=== PATIENT | male | born 1995 | race African-American/Black ===

== ENCOUNTER 2018-03-21 13:53 | Emergency (ER) | payer OTHER ==
[2018-03-21 14:34] VITALS: BP 138/97
--- NOTE | 2018-03-21 15:00 | EDM.PDOC ---
Scribed by Ca Spann 03/21/18 1500 for Bernardino Tomas MD ED HPI GENERAL MEDICAL PROBLEM - General Chief Complaint: General Stated Complaint: diabetic Time Seen by Provider: 03/21/18 14:49 Source of Information: Reports: Patient, RN, RN Notes Reviewed History Limitations: Reports: No Limitations - History of Present Illness INITIAL COMMENTS - FREE TEXT/NARRATIVE: Patient presents to ER stating that he has been out of Lantus for 2 days. Onset Date: 03/19/18 Improves with: Reports: None Worsens with: Reports: None Associated Symptoms: Reports: No Other Symptoms - Related Data Allergies Allergy/AdvReac Type Severity Reaction Status Date / Time No Known Allergies Allergy Verified 03/21/18 14:29 Home Meds: Home Meds Insulin Aspart [NovoLOG] 0 unit SQ WITHMEALSANDBED PRN 04/03/14 [History] Insulin Glargine,Hum.Rec.Anlog [Lantus Solostar] 20 units SQ QAM 04/03/14 [ History] Past Medical History Endocrine/Metabolic History: Reports: Diabetes, Type I Social & Family History - Family History Family Medical History: Noncontributory - Tobacco Use Smoking Status *Q: Never Smoker Second Hand Smoke Exposure: No - Caffeine Use Caffeine Use: Reports: None - Recreational Drug Use Recreational Drug Use: Yes Drug Use in Last 12 Months: Yes Recreational Drug Type: Reports: Marijuana/Hashish Recreational Drug Use Frequency: Daily ED ROS GENERAL - Review of Systems Review Of Systems: ROS reveals no pertinent complaints other than HPI. ED EXAM, GENERAL - Physical Exam Exam: See Below Exam Limited By: No Limitations General Appearance: Alert, WD/WN, No Apparent Distress Respiratory/Chest: No Respiratory Distress Cardiovascular: Regular Rate, Rhythm Neurological: No Motor/Sensory Deficits Course - Vital Signs Last Recorded V/S: Last Vital Signs Temp 37.3 C 03/21/18 14:30 Pulse 93 03/21/18 14:30 Resp 18 03/21/18 14:30 BP 138/97 H 03/21/18 14:30 Pulse Ox 99 03/21/18 14:30 Departure - Departure Time of Disposition: 14:50 Disposition: Home, Self-Care 01 Condition: Good Clinical Impression: Medication refill, History of type 1 diabetes mellitus - Discharge Information Instructions: Type 1 Diabetes Mellitus, Diagnosis, Adult Forms: ED Department Discharge Additional Instructions: RX: Lantus Solostar 100units/ml Pen. Follow up at [facility] in [place], [place]. I have read and agree with the documentation that has been completed regarding this visit. By signing this record, I attest that the documentation was completed in my physical presence and is an accurate record of the encounter.
== END 2018-03-21 15:06 | disposition home or self-care (01) ==
LOC: DL.ED 13:53
DX: Z76.0 Encounter for issue of repeat prescription (principal); E10.9 Type 1 diabetes mellitus without complications
CPT/HCPCS: 99281